=== PATIENT | male | born 2005 | race Hispanic/Latino ===

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

== ENCOUNTER 2023-01-09 00:07 | Emergency (ER) | payer BC ==
--- NOTE | 2023-01-09 01:52 | RAD REPORT ---
EXAM DESCRIPTION: CT - Head Brain Wo Cont - 01/09/2023 1:13 am CLINICAL HISTORY: CONFUSED Trauma, head injury COMPARISON: <Comparisons> TECHNIQUE: All CT scans are performed using dose optimization technique as appropriate and may inclu de automated exposure control or mA/KV adjustment according to patient size. FINDINGS: No intracranial hemorrhage, hydrocephalus or extra-axial fluid collection.No areas of brai n edema or evidence of midline shift. The paranasal sinuses and mastoids are clear. The calvarium is intact. IMPRESSION: No acute intracranial abnormality.
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
--- NOTE | 2023-01-09 03:22 | EDPHYS ---
Physician Documentation [facility] Name: Kj Thomas Age: 17 yrs Sex: Male : 2005 Arrival Date: 01/09/2023 Time: 00:07 Bed 17 Private MD: ED Physician Abdirashid London HPI: 01/09 00:28 This 17 yrs old Male presents to ER via Unassigned with complaints of Head bs3 Injury With LOC-Adult. 00:28 17-year-old male presents for evaluation of his head after hitting it against the bs3 steering wheel he is not sure if he lost consciousness he notes that he got frustrated and angry and then did this. He denies wanting to hurt himself or anyone else he notes that he got frustrated over an argument. Historical: - Allergies: 00:43 No Known Allergies; ha1 - Home Meds: 00:43 None [Active]; ha1 - Immunization history:: Adult Immunizations up to date. - Social history:: Smoking status: unknown. - Immunization history: Last tetanus immunization: unknown. ROS: 00:28 Constitutional: Negative for fever, chills bs3 00:28 All other systems are negative. Exam: 00:28 Constitutional: This is a well developed, well nourished patient who is awake, alert, bs3 and in no acute distress. Head/Face: forehead abrasion 01:27 Eyes: Pupils equal round and reactive to light, extra-ocular motions intact. Lids and bs3 lashes normal. ENT: mmm, no posterior phyarngeal erythema Neck: Trachea midline, no thyromegaly, no neck stiffness Chest/axilla: Normal chest wall appearance and motion. Nontender with no deformity. No lesions are appreciated. Cardiovascular: Regular rate and rhythm with a normal S1 and S2. symmetric pulses in upper extremities Respiratory: Lungs have equal breath sounds bilaterally, clear to auscultation, no respiratory distress MS/ Extremity: Pulses equal, no cyanosis. Neurovascular intact. Full, normal range of motion. Neuro: Awake and alert, GCS 15, oriented to person, place, time, and situation. Cranial nerves II-XII grossly intact. Motor strength 5/5 in all extremities. Sensory grossly intact. Psych: Awake, alert, with orientation to person, place and time. Behavior, mood, and affect are within normal limits. Vital Signs: 00:15 BP 125 / 73; Pulse 80; Resp 16 S; Temp 98.2(O); Pulse Ox 100% on R/A; Weight 77.11 kg; ha1 Height 6 ft. 3 in. ; Pain 6/10; 02:23 BP 116 / 66; Pulse 61; Resp 18 S; Pulse Ox 98% on R/A; ha1 03:15 BP 117 / 69; Pulse 69; Resp 18 S; Pulse Ox 97% on R/A; ha1 00:15 Body Mass Index 21.25 (77.11 kg, 190.5 cm) ha1 00:15 Pain Scale: Adult ha1 Rosa Coma Score: 00:15 Eye Response: spontaneous(4). Motor Response: obeys commands(6). Verbal Response: ha1 oriented(5). Total: 15. Trauma Score (Adult): 00:15 Eye Response: spontaneous(1); Verbal Response: oriented(1); Motor Response: obeys ha1 commands(2); Systolic BP: > 89 mm Hg(4); Respiratory Rate: 10 to 29 per min(4); Rosa Score: 15; Trauma Score: 12 MDM: 00:15 Patient medically screened. bs3 01:27 Data reviewed: vital signs, nurses notes. ED course: Will evaluate for intracranial bs3 hemorrhage assess patient for thoughts of wanting to hurt himself or anyone else and he denied. 03:20 ED course: CT negative for acute pathology will discharge home. bs3 01/09 00:21 Order name: CT Head Brain wo Cont; Complete Time: 02:12 bs3 Administered Medications: No medications were administered Disposition Summary: 01/09/23 03:20 Discharge Ordered Location: Home bs3 Problem: new bs3 Symptoms: have improved bs3 Condition: Stable bs3 Diagnosis - Unspecified injury of head, initial encounter bs3 Followup: bs3 - With: Private Physician - When: 2 - 3 days - Reason: Re-evaluation by your physician Discharge Instructions: - Discharge Summary Sheet bs3 - Head Injury, Adult bs3 Forms: - Medication Reconciliation Form bs3 - Thank You Letter bs3 - Antibiotic Education bs3 - Prescription Opioid Use bs3 Signatures: Dispatcher [employer] EDAnne Rendon RN RN ha1 Abdirashid London MD MD bs3 Corrections: (The following items were deleted from the chart) 01:28 00:28 17-year-old male presents for evaluation of his head after hitting it against the bs3 steering wheel he is not sure if he lost consciousness he notes that he got frustrated and angry and therefore headache. bs3
[2023-01-09 04:20] VITALS: TEMP 98.2
[2023-01-09 04:23] VITALS: BP 117/69; O2SAT 97
== END 2023-01-09 03:38 | disposition home or self-care (01) ==
LOC: ER 00:07
DX: S00.81XA Abrasion of other part of head, initial encounter (principal)
CPT/HCPCS: 70450